=== PATIENT | female | born 1960 | race Caucasian/White ===

== ENCOUNTER → 2021-09-10 08:25 | Outpatient (CLI) | payer BC, SELFPAY ==
--- NOTE | ~2021-09-10 | MR_ITS ---
EXAMINATION: MR ankle RT wo con DATE: 09/10/2021 08:58 INDICATION: Right ankle pain and swelling. Posterior tibial tendinitis. TECHNIQUE: Magnetic resonance imaging (MRI) of the right ankle was performed without intravenous cont rast. Sequences included sagittal PD-weighted FS FSE, sagittal PD-weighted FSE, coronal PD-weighted F S FSE, coronal PD-weighted FSE, axial PD-weighted FS FSE, and axial PD-weighted FSE. COMPARISON: None. FINDINGS: Medial ankle ligaments: The superficial and deep components of the deltoid ligament are normal. Lateral ankle ligaments: The anterior and posterior talofibular ligaments are intact. Calcaneofibular ligament demonstrates ch anges of prior sprain characterized by increased signal intensity. Anterior tibiofibular ligament dem onstrates changes of prior sprain characterized increased signal intensity and thickening. Posterior tibiofibular ligament is intact. Tendons: The Achilles tendon, peroneal tendons, and anterior ankle tendons are normal. There is tendinopathy a nd partial tear involving posterior tibial tendon, which demonstrates areas of enlargement and thinni ng with an undulating morphology. Plantar fascia: There is thickening and increased signal involving the central band of plantar fascia, consistent wit h fasciitis. There is an enthesophyte at the calcaneal attachment. 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 Fluid: There is a small subtalar joint effusion. There is a subcutaneous edema about the ankle. IMPRESSION: 1. Tendinopathy and partial tear involving posterior tibial tendon. 2. Changes of lateral ankle sprain. 3. Plantar fasciitis. 4. Mild polyarticular osteoarthritis. Reviewed, dictated and finalized at location A.
== END ==
PROVIDERS: PCP Family Medicine; Visit Provider Podiatrist Foot & Ankle Surgery
DX: M76.821 Posterior tibial tendinitis, right leg (principal); S93.491A Sprain of other ligament of right ankle, initial encounter; M72.2 Plantar fascial fibromatosis; M19.071 Primary osteoarthritis, right ankle and foot
CPT/HCPCS: 73721